=== PATIENT | female | born 1980 | race African-American/Black ===

== ENCOUNTER 2016-05-14 23:20 | Emergency (ER) | payer MEDICAID ==
[~2016-05-14] VITALS: Ht 157.5 cm; Wt 47.4 kg
[~2016-05-14 23:20] MED LIST: ACET325T14 PO; BUPR1FIL5 PO; CLIN300C93 PO; DIAZ2TAB3 PO; LEVO750T26 PO; OXYC5CAP4 PO; RISP1TAB3 PO; SENN8.6C2 PO
[2016-05-14 23:21] VITALS: BP 145/90
[2016-05-15] MEDS ORDERED: SODIUM CHLORIDE FLUSH 10ML SYR IVF ONE (00:30)
[2016-05-15] MEDS ORDERED: VANCOMYCIN PMX 1GM/200ML 200 ML IV ONE (00:30)
[2016-05-15] MEDS ORDERED: VANCOMYCIN PER PHARMACY IV ONE (00:30)
[2016-05-15] MEDS ORDERED: SODIUM CHLORIDE 0.9% 1,000ML IVBOLUS ONE (00:30)
[2016-05-15] MEDS ORDERED: KETOROLAC 30 MG/1 ML IVPush ONE (00:30)
[2016-05-15] MEDS ORDERED: CLINDAMYCIN PMX 900MG/50ML 50 ML IV ONE (00:30)
[2016-05-15 00:38] LABS: HEMOGLOBIN 13.2 g/dL (11.7-16.4)
[2016-05-15 00:51] LABS: ASPARTATE AMINO TRANSFERASE 25 U/L (15-37); BLOOD UREA NITROGEN 8 mg/dL (7-18)
[2016-05-15] MEDS ORDERED: CLINDAMYCIN PMX 900MG/50ML 50 ML ONE (00:51)
[2016-05-15] MEDS ORDERED: KETOROLAC 30 MG/1 ML ONE (00:51)
[2016-05-17] MEDS ORDERED: CLIN300C93 PO (23:53)
[2016-05-17] MEDS ORDERED: BUSP15TA PO (23:53)
== END 2016-05-15 04:11 | disposition home or self-care (01) ==
LOC: ED 05-15 00:30
DX: L03.113 Cellulitis of right upper limb (principal); L03.211 Cellulitis of face; Z88.8 Allergy status to other drugs, medicaments and biological substances; F11.10 Opioid abuse, uncomplicated
CPT/HCPCS: 36415; 80053; 83605; 84145; 85025; 87040; 96365; 96368; 96375; 99284; J1885; J3370; J7030

== ENCOUNTER 2016-05-25 16:06 | Emergency (ER) | payer MEDICAID ==
[~2016-05-25] VITALS: Ht 165.1 cm; Wt 49.3 kg
[~2016-05-25 16:06] MED LIST changes: +BUSP15TA PO
[2016-05-25 16:08] VITALS: BP 150/105
[2016-05-25] MEDS ORDERED: DIPH,PERTUSS(ACELL),TET VAC/PF 0.5 ML IM-VACC ONE ×2 (16:30→16:37)
== END 2016-05-25 17:06 | disposition home or self-care (01) ==
LOC: ED 16:50
DX: S71.151A Open bite, right thigh, initial encounter (principal); Z88.8 Allergy status to other drugs, medicaments and biological substances; W54.0XXA Bitten by dog, initial encounter; Y93.9 Activity, unspecified; Y92.89 Other specified places as the place of occurrence of the external cause; Y99.9 Unspecified external cause status
CPT/HCPCS: 90471; 90715; 99283

== ENCOUNTER 2016-08-21 20:30 | Emergency (ER) | payer MEDICAID ==
[~2016-08-21] VITALS: Ht 165.1 cm; Wt 46.9 kg
[2016-08-21 20:32] VITALS: BP 130/86
== END 2016-08-21 23:50 | disposition home or self-care (01) ==
LOC: ED 21:22
DX: F17.210 Nicotine dependence, cigarettes, uncomplicated (principal)
CPT/HCPCS: 99284

== ENCOUNTER 2016-11-22 10:13 | Emergency (ER) | payer MEDICAID ==
[~2016-11-22] VITALS: Ht 165.1 cm; Wt 49.0 kg
[~2016-11-22 10:13] MED LIST changes: +CLIN300C8 PO; -CLIN300C93 PO; +OXYC5CAP2 PO; -OXYC5CAP4 PO
[2016-11-22] MEDS ORDERED: SODIUM CHLORIDE 0.9% 1,000 ML IV ONE (11:07)
[2016-11-22] MEDS ORDERED: HYDROmorphone 1 MG/ML, 1ML ONE ×2 (11:13→12:46)
[2016-11-22] MEDS ORDERED: ONDANSETRON 2MG/ML, 2ML ONE (11:13)
[2016-11-22] MEDS ORDERED: ACETAMINOPHEN 500 MG TABLET ONE (11:13)
[2016-11-22] MEDS: HYDROmorphone 1 MG/ML, 1ML IVPush PRN ×2 (11:14→12:50)
[2016-11-22] MEDS ORDERED: CEFTRIAXONE PMX 1GM/50ML 50 ML IVPB ONE (11:30)
[2016-11-22] MEDS ORDERED: SODIUM CHLORIDE FLUSH 10ML SYR IVF ONE (11:30)
[2016-11-22] MEDS ORDERED: ACETAMINOPHEN 500 MG TABLET PO ONE (11:30)
[2016-11-22] MEDS ORDERED: ONDANSETRON 2MG/ML, 2ML IVPush ONE (11:30)
[2016-11-22] MEDS ORDERED: SODIUM CHLORIDE 0.9% 1,000ML IVBOLUS ONE (11:30)
[2016-11-22] MEDS ORDERED: CEFTRIAXONE PMX 1GM/50ML 50 ML ONE (11:33)
[2016-11-22 11:52] LABS: ASPARTATE AMINO TRANSFERASE 27 U/L (15-37); BLOOD UREA NITROGEN 9 mg/dL (7-18)
[2016-11-22 12:10] LABS: HEMATOCRIT 38.5 % (34.6-47.8); HEMOGLOBIN 13.2 g/dL (11.7-16.4); WHITE BLOOD COUNT 9.3 x10^3/uL (3.4-10)
[2016-11-22 14:21] VITALS: BP 126/82
== END 2016-11-22 14:31 | disposition home or self-care (01) ==
LOC: ED 14:13
DX: N10 Acute pyelonephritis (principal)
CPT/HCPCS: 36415; 74176; 80053; 81001; 83605; 83690; 84703; 85025; 87040; 87077; 87086; 96361; 96365; 96375; 99285; J0696; J1170; J2405; J7030; 87186

== ENCOUNTER 2017-11-26 19:48 | Emergency (ER) | payer MEDICAID ==
[~2017-11-26] VITALS: Ht 154.9 cm; Wt 58.6 kg
[2017-11-26 19:54] VITALS: BP 163/110
[2017-11-26] MEDS ORDERED: AMPICILLIN/SULBACTAM 3 GM IM ONE (20:30)
[2017-11-26] MEDS ORDERED: LIDOCAINE 1%, 10ML INFIL ONE (20:30)
[2017-11-26] MEDS ORDERED: IBUPROFEN 200 MG TABLET PO ONE (20:30)
[2017-11-26] MEDS ORDERED: LIDOCAINE-MPF 1%, 5ML ONE ×2 (20:35→21:15)
[2017-11-26] MEDS ORDERED: IBUPROFEN 200 MG TABLET ONE (20:35)
[2017-11-26] MEDS ORDERED: DIPH,PERTUSS(ACELL),TET VAC/PF 0.5 ML IM-VACC ONE ×2 (21:00→21:18)
== END 2017-11-26 21:47 | disposition home or self-care (01) ==
LOC: ED 20:30
DX: L03.114 Cellulitis of left upper limb (principal)
CPT/HCPCS: 10060; 82962; 90471; 90715; 96372; 99284; J0295

== ENCOUNTER 2017-11-29 20:43 | Emergency (ER) | payer MEDICAID ==
[~2017-11-29] VITALS: Ht 135.9 cm; Wt 59.7 kg
[2017-11-29 20:48] VITALS: BP 174/128
== END 2017-11-29 21:11 | disposition home or self-care (01) ==
LOC: ED 21:00
DX: L02.414 Cutaneous abscess of left upper limb (principal); F41.1 Generalized anxiety disorder; F32.9 Major depressive disorder, single episode, unspecified; Z86.39 Personal history of other endocrine, nutritional and metabolic disease
CPT/HCPCS: 99282

== ENCOUNTER 2017-12-04 17:50 | Emergency (ER) | payer MEDICAID ==
[~2017-12-04] VITALS: Ht 162.6 cm; Wt 60.3 kg
[2017-12-04 18:10] VITALS: BP 132/92
== END 2017-12-04 19:01 | disposition home or self-care (01) ==
LOC: ED 18:45
DX: L02.414 Cutaneous abscess of left upper limb (principal); F41.1 Generalized anxiety disorder; F32.9 Major depressive disorder, single episode, unspecified
CPT/HCPCS: 99281

== ENCOUNTER 2018-08-23 13:09 | Emergency (ER) | payer MEDICAID ==
[~2018-08-23] VITALS: Ht 165.1 cm; Wt 49.0 kg
--- NOTE | 2018-08-23 13:37 | NUR ---
Assumed care of patient. C/O constipation, generalized ABD pain, and mild rectal bleeding (only seen on TP). Patient tried two enemas at home with no relief. Will continue to monitor.
[2018-08-23] MEDS ORDERED: MAGNESIUM CITRATE 300ML ORAL SOL PO ONE (14:30)
[2018-08-23] MEDS ORDERED: MAGNESIUM CITRATE 300ML ORAL SOL ONE (14:48)
[2018-08-23 15:32] VITALS: BP 127/69
--- NOTE | 2018-08-23 15:44 | NUR ---
Patient/Caregiver given discharge instructions and they have confirmed that they understand the instructions. Patient ambulatory with steady gait.
== END 2018-08-23 15:45 | disposition home or self-care (01) ==
LOC: ED 15:14
DX: K59.00 Constipation, unspecified (principal); F17.210 Nicotine dependence, cigarettes, uncomplicated
CPT/HCPCS: 74021; 99283

== ENCOUNTER 2019-05-07 11:07 | Emergency (ER) | payer MEDICAID ==
[~2019-05-07] VITALS: Ht 162.6 cm; Wt 51.8 kg
[~2019-05-07 11:07] MED LIST changes: +ARIP15TA3 PO; +bupropion
[2019-05-07 11:09] VITALS: BP 183/130
== END 2019-05-07 11:36 | disposition left against medical advice (07) ==
LOC: ED 11:30
DX: Z76.0 Encounter for issue of repeat prescription (principal); Z53.21 Procedure and treatment not carried out due to patient leaving prior to being seen by health care provider

== ENCOUNTER 2019-05-14 16:11 | Emergency (ER) | payer MEDICAID ==
[~2019-05-14] VITALS: Ht 165.1 cm; Wt 51.3 kg
[2019-05-14 18:01] VITALS: BP 139/104
[2019-05-14 19:20] LABS: MICROSCOPIC INDICATED
[2019-05-14 19:25] LABS: CULTURE INDICATED? YES
[2019-05-14 19:31] LABS: HCG UR SG 1.032 (1.003-1.030)
[2019-05-14] MEDS ORDERED: CEFTRIAXONE 250 MG ONE (19:56)
[2019-05-14] MEDS ORDERED: IBUPROFEN 800 MG TABLET ONE (19:56)
[2019-05-14] MEDS ORDERED: AZITHROMYCIN 250 MG TABLET ONE (19:57)
[2019-05-14] MEDS ORDERED: AZITHROMYCIN 500 MG TABLET PO ONE (20:00)
[2019-05-14] MEDS ORDERED: IBUPROFEN 800 MG TABLET PO ONE (20:00)
[2019-05-14] MEDS ORDERED: CEFTRIAXONE 250 MG IM ONE (20:00)
--- NOTE | 2019-05-14 21:19 | NUR ---
Patient/Caregiver given discharge instructions and they have confirmed that they understand the instructions. Patient ambulatory with steady gait.
== END 2019-05-14 21:21 | disposition home or self-care (01) ==
LOC: ED 16:30
DX: N30.00 Acute cystitis without hematuria (principal); M70.41 Prepatellar bursitis, right knee; R30.0 Dysuria; F17.200 Nicotine dependence, unspecified, uncomplicated; Z86.39 Personal history of other endocrine, nutritional and metabolic disease
CPT/HCPCS: 81001; 81025; 87077; 87086; 87491; 87591; 96372; 99283; J0696; 87186

== ENCOUNTER 2019-11-21 23:51 | Emergency (ER) | payer MEDICAID ==
[~2019-11-21] VITALS: Ht 165.1 cm; Wt 57.8 kg
[2019-11-22] VITALS: BP 165/112
[2019-11-22] MEDS ORDERED: AMOXICILLIN 500 MG CAPSULE ONE (00:28)
[2019-11-22] MEDS ORDERED: HYDROcodone/APAP 5/325 TABLET ONE (00:28)
[2019-11-22] MEDS ORDERED: AMOXICILLIN 500 MG CAPSULE PO ONE (00:30)
[2019-11-22] MEDS ORDERED: HYDROcodone/APAP 5/325 TABLET PO ONE (00:30)
--- NOTE | 2019-11-22 00:31 | NUR ---
TASK RN: PT MEDICATED FOR PAIN PER MAR.
--- NOTE | 2019-11-22 00:47 | NUR ---
TASK RN: PT D/C WITH D/C SUMMARY AND SCRIPTS. ALL QUESTIONS ANSWERED. PT AMBULATES TO REGISTRATION DESK WITH STEADY GAIT FOR D/C HOME. PT DENIES ANY OTHER NEEDS PERTAINING TO THIS VISIT.
== END 2019-11-23 04:59 | disposition home or self-care (01) ==
LOC: ED 11-22 00:30
DX: K04.7 Periapical abscess without sinus (principal)
CPT/HCPCS: 41800; 99284

== ENCOUNTER 2019-12-04 05:14 | Emergency (ER) | payer MEDICAID ==
[~2019-12-04] VITALS: Ht 162.6 cm; Wt 58.1 kg
[2019-12-04 05:54] VITALS: BP 148/108
--- NOTE | 2019-12-04 06:02 | NUR ---
PT CAME IN FOR TOOTH PAIN X3 WEEKS. PT STATES JUST WANTING PRESCRIPTION. BP WAS REDONE AND SHOWN TO PROVIDER. ERP STATED TO D/C PT.
== END 2019-12-04 06:04 | disposition home or self-care (01) ==
LOC: ED 05:41
DX: K08.89 Other specified disorders of teeth and supporting structures (principal); E87.1 Hypo-osmolality and hyponatremia; Z36.89 Encounter for other specified antenatal screening; Z76.0 Encounter for issue of repeat prescription
CPT/HCPCS: 99281

== ENCOUNTER 2020-02-12 03:31 | Emergency (ER) | payer MEDICAID ==
[~2020-02-12] VITALS: Ht 162.6 cm; Wt 57.6 kg
[~2020-02-12 03:31] MED LIST changes: -CLIN300C8 PO; +CLIN300C9 PO; -RISP1TAB3 PO; +RISP1TAB90 PO
--- NOTE | 2020-02-12 03:59 | NUR ---
PT HERE FOR INCREASED PAINFUL URINATION X 3 DAYS. PT DENIES FEVER BUT HAS NAUSEA WITHOUT VOMITING. UA SENT TO LAB. CALL LIGHT IN REACH
[2020-02-12 04:18] LABS: HCG UR SG 1.022 (1.003-1.030)
[2020-02-12 04:19] LABS: MICROSCOPIC INDICATED
[2020-02-12] MEDS ORDERED: CEFTRIAXONE 250 MG IM ONE ×2 (05:00)
[2020-02-12] MEDS ORDERED: AZITHROMYCIN 500 MG TABLET PO ONE (05:00)
[2020-02-12] MEDS ORDERED: CEFTRIAXONE 1,000 MG IM ONE (05:00)
[2020-02-12] MEDS ORDERED: CEFTRIAXONE 1,000 MG ONE (05:03)
[2020-02-12] MEDS ORDERED: AZITHROMYCIN 250 MG TABLET ONE (05:03)
[2020-02-12 05:04] LABS: CLUE CELLS NONE SEEN (NONE SEEN)
[2020-02-12 05:05] LABS: WET PREP WBCS NONE SEEN (FEW)
[2020-02-12 05:15] VITALS: BP 145/97
[2020-02-12] MEDS ORDERED: FLUCONAZOLE 100 MG TABLET ONE (05:19)
[2020-02-12] MEDS ORDERED: FLUCONAZOLE 100 MG TABLET PO ONE (05:30)
== END 2020-02-12 05:32 | disposition home or self-care (01) ==
LOC: ED 04:17
DX: B37.3 Candidiasis of vulva and vagina (principal); N89.8 Other specified noninflammatory disorders of vagina; R11.0 Nausea; R30.0 Dysuria; R10.9 Unspecified abdominal pain; Z72.9 Problem related to lifestyle, unspecified; Z86.39 Personal history of other endocrine, nutritional and metabolic disease
CPT/HCPCS: 81001; 81025; 87077; 87086; 87210; 87491; 87591; 87808; 96372; 99283; J0696; 87186

== ENCOUNTER 2020-07-25 05:25 | Emergency (ER) | payer MEDICAID ==
[~2020-07-25] VITALS: Ht 162.6 cm; Wt 58.0 kg
[2020-07-25 05:27] VITALS: BP 177/129
[2020-07-25] MEDS ORDERED: ACETAMINOPHEN 500 MG TABLET ONE (05:55)
[2020-07-25] MEDS ORDERED: KETOROLAC 30 MG/1 ML ONE (05:55)
[2020-07-25] MEDS ORDERED: KETOROLAC 30 MG/1 ML IM ONE (06:00)
[2020-07-25] MEDS ORDERED: ACETAMINOPHEN 500 MG TABLET PO ONE (06:00)
--- NOTE | 2020-07-25 06:07 | NUR ---
Patient given discharge instructions and they have confirmed that they understand the instructions. Patient ambulatory with steady gait.
== END 2020-07-25 06:09 | disposition home or self-care (01) ==
LOC: ED 05:46
DX: K02.9 Dental caries, unspecified (principal); K08.89 Other specified disorders of teeth and supporting structures; F17.210 Nicotine dependence, cigarettes, uncomplicated
CPT/HCPCS: 96372; 99283; 99406; J1885